=== PATIENT | female | born 1960 | race Caucasian/White ===

== ENCOUNTER 2020-12-18 14:48 | Inpatient (IN) | payer BC ==
[~2020-12-18] VITALS: Ht 170.2 cm; Wt 90.0 kg
[~2020-12-18 14:48] MED LIST: IBUP-1984 PO
[2020-12-18] MEDS ORDERED: levoFLOXACIN-Levaquin 750MG/D5 150 ML IV ONE (15:30)
[2020-12-18] MEDS ORDERED: normal saline 1000ML IV soln IV ONE (15:30)
[2020-12-18 15:36] LABS: BASOPHILS % (AUTO) 0.1 % (0-1); EOSINOPHILS % (AUTO) 0 % (0-6); HEMATOCRIT 43.7 % (35.0-45.0); LYMPHOCYTES # (AUTO) 0.4 X10'3 (1.1-4.8); LYMPHOCYTES % (AUTO) 3.9 % (21-51); MEAN CORPUSCULAR HEMOGLOBIN 32.2 PG (27.0-31.0); MEAN CORPUSCULAR HGB CONC 34.3 g/dL (33.0-36.5); MEAN CORPUSCULAR VOLUME 93.7 FL (78-98); MEAN PLATELET VOLUME 8.6 FL (7.4-10.4); MONOCYTES % (AUTO) 8.7 % (2-12); NEUTROPHILS # (AUTO) 10.1 X10'3 (1.8-7.7); NEUTROPHILS % (AUTO) 87.3 % (42-75); PLATELET COUNT 206 X10'3 (140-440); RED BLOOD COUNT 4.67 X10'6 (4.20-5.60); RED CELL DISTRIBUTION WIDTH 12.6 % (11.5-14.5); WHITE BLOOD COUNT 11.6 X10'3 (4.5-11.0)
[2020-12-18] MEDS ORDERED: ondansetron/PF 4mg/2ml inj IV ONE ×2 (15:40→18:45)
[2020-12-18 15:52] LABS: ALANINE AMINOTRANSFERASE 19 U/L (12-78); ALBUMIN 2.9 G/DL (3.4-5.0); ALBUMIN/GLOBULIN RATIO 0.6 (1.1-1.5); ALKALINE PHOSPHATASE 110 IU/L (46-116); ANION GAP 18 (8-16); ASPARTATE AMINO TRANSFERASE 22 U/L (10-37); BILIRUBIN,TOTAL 0.6 MG/DL (0.1-1.0); BLOOD UREA NITROGEN 39 MG/DL (7-18); BUN/CREATININE RATIO 19.1 (6.6-38.0); CALCIUM 8.7 MG/DL (8.5-10.1); CHLORIDE 95 MMOL/L (99-107); CREATININE 2.04 MG/DL (0.40-0.90); GLUCOSE 128 MG/DL (70-104); POTASSIUM 3.2 MMOL/L (3.5-5.1); SODIUM 132 MMOL/L (135-145); TOTAL PROTEIN 7.7 G/DL (6.4-8.2); eGFR 25 ML/MIN
[2020-12-18] MEDS: morphine 4 MG/ML inj SYRINge IV PRN ×2 (16:01→19:01)
[2020-12-18] MEDS ORDERED: potassium Cl 10 mEq/100mL bag IV ONE (17:00)
[2020-12-18] MEDS: potassium CL 10mEq/100ml bag 100 ML IV SCH ×6 (17:05→22:05)
[2020-12-18 17:15] LABS: CLARITY,URINE CLOUDY (Clear); COLOR,URINE YELLOW (Yellow); GLUCOSE, URINE NEGATIVE (Neg); KETONES,URINE TRACE mg/dl (Neg); LEUKOCYTE ESTERASE ,URINE SMALL (Neg); NITRITES, URINE NEGATIVE (Neg); OCCULT BLOOD,URINE SMALL (Neg); PH,URINE 5.5 (4.8-8.0); PROTEIN,URINE 100 mg/dl (Neg); UROBILINOGEN,URINE 0.2 E.U/dL (0.2-1.0)
[2020-12-18 17:43] LABS: UA COLLECTION TYPE CLN CATCH MIDSTREAM
[2020-12-18 17:46] LABS: BACTERIA,URINE 4+ /HPF (Neg); CELLULAR CAST 0-4 /LPF (NEGATIVE); MUCUS STRANDS FEW /LPF (Neg); RBC,URINE 0-2 /HPF (0-2); SQUAMOUS EPITHELIAL CELL,UR MODERATE /LPF (FEW); WBC,URINE 50-100 /HPF (0-4)
[2020-12-18 18:43] LABS: TOTAL CELLS COUNTED 100
[2020-12-18 18:45] LABS: PLATELET ESTIMATE NORMAL; TOXIC GRANULATION 2+; TOXIC VACUOLATION 1+
[2020-12-18] MEDS ORDERED: morphine 4 MG/ML inj SYRINge IV PRN (18:45)
[2020-12-18] MEDS ORDERED: ondansetron/PF 4mg/2ml inj IV PRN (19:50)
[2020-12-18] MEDS ORDERED: potassium Cl 40MEQ/1/2NS 520ml 520 ML IV PRN ×2 (19:50)
[2020-12-18] MEDS ORDERED: morphine 2 MG/ML inj. syringe IV PRN (19:50)
[2020-12-18] MEDS ORDERED: potassium Cl 20 mEq SR tablet PO PRN (19:50)
[2020-12-18] MEDS: potassium Cl 20mEq in NS 1,000 ML IV SCH (20:26)
[2020-12-18] MEDS: K and/or MAG REPLACEMENT MC SCH (20:28)
[2020-12-18] MEDS: heparin, porcine 5000 units/ml vial SQ SCH (20:29)
[2020-12-18] MEDS ORDERED: PROG200C11 PO (21:13)
[2020-12-18] MEDS ORDERED: EST1T PO ×2 (21:13)
[2020-12-18] MEDS ORDERED: estradiol patch TD (21:13)
[2020-12-18] MEDS ORDERED: HYDR12.55 PO (21:13)
--- NOTE | 2020-12-18 22:32 | NUR ---
Received report from Satya CLEMENS RN.
[2020-12-19] VITALS: BP 129/67
[2020-12-19] MEDS: piperacillin/tazo 3.375gm/50ml 50 ML IV SCH ×3 (01:02→17:27)
[2020-12-19] MEDS: morphine 2 MG/ML inj. syringe IV PRN ×4 (03:12→21:52)
[2020-12-19] MEDS: potassium Cl 20mEq in NS 1,000 ML IV SCH ×2 (06:04→17:28)
--- NOTE | 2020-12-19 06:47 | NUR ---
Problems reprioritized. Patient report given, questions answered & plan of care reviewed with ALEXI Mckoen.
--- NOTE | 2020-12-19 06:47 | NUR ---
Problems reprioritized. Patient report given, questions answered & plan of care reviewed with ALEXI Mckeon.
--- NOTE | 2020-12-19 06:48 | NUR ---
Patient in room [facility]. I have received report from Anabell TRUONG and rachana RN and had the opportunity to ask questions and assume patient care.
[2020-12-19 07:00] VITALS: BP 127/69
[2020-12-19 07:08] LABS: EOSINOPHILS % (AUTO) 0 % (0-6); LYMPHOCYTES # (AUTO) 0.6 X10'3 (1.1-4.8); MEAN CORPUSCULAR HGB CONC 34.9 g/dL (33.0-36.5); MONOCYTES # (AUTO) 1.5 X10'3 (0-0.9); WHITE BLOOD COUNT 10.2 X10'3 (4.5-11.0)
[2020-12-19 07:11] LABS: BASOPHILS % (AUTO) 0.2 % (0-1); HEMATOCRIT 35.9 % (35.0-45.0); HEMOGLOBIN 12.5 g/dl (12.0-16.0); MEAN CORPUSCULAR HEMOGLOBIN 32.8 PG (27.0-31.0); MEAN CORPUSCULAR VOLUME 94.1 FL (78-98); MEAN PLATELET VOLUME 8.1 FL (7.4-10.4); MONOCYTES % (AUTO) 14.7 % (2-12); NEUTROPHILS % (AUTO) 79.1 % (42-75); PLATELET COUNT 189 X10'3 (140-440); RED BLOOD COUNT 3.81 X10'6 (4.20-5.60); RED CELL DISTRIBUTION WIDTH 12.5 % (11.5-14.5)
[2020-12-19 07:42] LABS: ALANINE AMINOTRANSFERASE 18 U/L (12-78); ALBUMIN 2.1 G/DL (3.4-5.0); ALBUMIN/GLOBULIN RATIO 0.5 (1.1-1.5); ALKALINE PHOSPHATASE 85 IU/L (46-116); ANION GAP 14 (8-16); ASPARTATE AMINO TRANSFERASE 22 U/L (10-37); BILIRUBIN,TOTAL 0.4 MG/DL (0.1-1.0); BLOOD UREA NITROGEN 26 MG/DL (7-18); BUN/CREATININE RATIO 21.7 (6.6-38.0); CALCIUM 7.5 MG/DL (8.5-10.1); CHLORIDE 101 MMOL/L (99-107); GLUCOSE 105 MG/DL (70-104); POTASSIUM 3.2 MMOL/L (3.5-5.1); SODIUM 133 MMOL/L (135-145); TOTAL CARBON DIOXIDE 18.2 MMOL/L (24-32); eGFR 46 ML/MIN
[2020-12-19 07:54] LABS: TOTAL CELLS COUNTED 100
[2020-12-19 07:55] LABS: PLATELET ESTIMATE NORMAL
[2020-12-19] MEDS: K and/or MAG REPLACEMENT MC SCH ×2 (08:00→19:59)
[2020-12-19] MEDS: heparin, porcine 5000 units/ml vial SQ SCH ×2 (08:57→19:51)
[2020-12-19] MEDS: estradiol 1mg tablet PO SCH (08:59)
[2020-12-19] MEDS: HYDROchlorothiazide 12.5mg capsule PO SCH (08:59)
[2020-12-19] MEDS ORDERED: ESTRADIOL 0.075 MG/24 HR TP SCH ×2 (09:00→13:55)
[2020-12-19] MEDS: potassium Cl 20 mEq SR tablet PO PRN ×3 (10:49→19:51)
[2020-12-19 11:00] VITALS: BP 118/65
[2020-12-19] MEDS ORDERED: ESTR1PAT94 TOP (13:54)
[2020-12-19 18:00] VITALS: BP 144/54
--- NOTE | 2020-12-19 18:45 | NUR ---
Patient in room [facility]. I have received report from IZABEL TRUONG and had the opportunity to ask questions and assume patient care.
--- NOTE | 2020-12-19 18:52 | NUR ---
Problems reprioritized. Patient report given, questions answered & plan of care reviewed with Prudence RN.
[2020-12-19] MEDS ORDERED: acetaminophen 325mg tablet PO PRN ×2 (19:45→20:00)
[2020-12-19] MEDS: lactobacillus rhamnosus 10,000 MMU CELLS/CAPSULE PO SCH (19:51)
[2020-12-19] MEDS: progesterone, micronized 100mg capsule PO SCH (21:54)
[2020-12-20] VITALS: BP 115/58
[2020-12-20] MEDS: piperacillin/tazo 3.375gm/50ml 50 ML IV SCH ×4 (00:49→23:45)
[2020-12-20] MEDS: potassium Cl 20mEq in NS 1,000 ML IV SCH ×3 (00:49→20:51)
[2020-12-20] MEDS: morphine 2 MG/ML inj. syringe IV PRN ×6 (03:02→23:46)
[2020-12-20 05:56] LABS: BASOPHILS % (AUTO) 0.1 % (0-1); EOSINOPHILS % (AUTO) 0.1 % (0-6); HEMATOCRIT 37.2 % (35.0-45.0); HEMOGLOBIN 12.5 g/dl (12.0-16.0); LYMPHOCYTES # (AUTO) 0.8 X10'3 (1.1-4.8); LYMPHOCYTES % (AUTO) 6.5 % (21-51); MEAN CORPUSCULAR HEMOGLOBIN 31.8 PG (27.0-31.0); MEAN CORPUSCULAR HGB CONC 33.7 g/dL (33.0-36.5); MEAN CORPUSCULAR VOLUME 94.3 FL (78-98); MONOCYTES # (AUTO) 1.2 X10'3 (0-0.9); MONOCYTES % (AUTO) 9.8 % (2-12); NEUTROPHILS % (AUTO) 83.5 % (42-75); PLATELET COUNT 227 X10'3 (140-440); RED BLOOD COUNT 3.95 X10'6 (4.20-5.60)
--- NOTE | 2020-12-20 06:27 | NUR ---
Problems reprioritized. Patient report given, questions answered & plan of care reviewed with TOMER TRUONG.
[2020-12-20 06:29] LABS: ALANINE AMINOTRANSFERASE 17 U/L (12-78); ALBUMIN/GLOBULIN RATIO 0.5 (1.1-1.5); ALKALINE PHOSPHATASE 98 IU/L (46-116); ANION GAP 11 (8-16); ASPARTATE AMINO TRANSFERASE 22 U/L (10-37); BILIRUBIN,TOTAL 0.5 MG/DL (0.1-1.0); BLOOD UREA NITROGEN 12 MG/DL (7-18); BUN/CREATININE RATIO 12.1 (6.6-38.0); CALCIUM 8.1 MG/DL (8.5-10.1); CHLORIDE 102 MMOL/L (99-107); CREATININE 0.99 MG/DL (0.40-0.90); GLUCOSE 108 MG/DL (70-104); POTASSIUM 3.9 MMOL/L (3.5-5.1); SODIUM 132 MMOL/L (135-145); TOTAL CARBON DIOXIDE 18.9 MMOL/L (24-32); TOTAL PROTEIN 6.1 G/DL (6.4-8.2); eGFR 57 ML/MIN
--- NOTE | 2020-12-20 07:02 | NUR ---
Patient in room [facility]. I have received report from Shyanne TRUONG and had the opportunity to ask questions and assume patient care.
[2020-12-20] MEDS: lactobacillus rhamnosus 10,000 MMU CELLS/CAPSULE PO SCH ×2 (07:52→19:27)
[2020-12-20] MEDS: HYDROchlorothiazide 12.5mg capsule PO SCH (07:52)
[2020-12-20] MEDS: heparin, porcine 5000 units/ml vial SQ SCH ×2 (07:53→19:27)
[2020-12-20] MEDS: estradiol 1mg tablet PO SCH (07:54)
[2020-12-20 08:00] VITALS: BP 161/72
[2020-12-20] MEDS: K and/or MAG REPLACEMENT MC SCH ×2 (08:00→20:00)
[2020-12-20 11:00] VITALS: BP 121/56
[2020-12-20] MEDS ORDERED: hydrALAZINE 20mg/ml inj. IV PRN (14:30)
[2020-12-20 18:00] VITALS: BP 140/65
--- NOTE | 2020-12-20 18:13 | NUR ---
Problems reprioritized. Patient report given, questions answered & plan of care reviewed with Prudence RN.
--- NOTE | 2020-12-20 18:48 | NUR ---
Patient in room [facility]. I have received report from TOMER TRUONG and had the opportunity to ask questions and assume patient care.
[2020-12-20] MEDS: progesterone, micronized 100mg capsule PO SCH (20:47)
[2020-12-21 00:39] VITALS: BP 155/81
[2020-12-21] MEDS: morphine 2 MG/ML inj. syringe IV PRN ×2 (04:07→07:53)
[2020-12-21] MEDS: potassium Cl 20mEq in NS 1,000 ML IV SCH ×2 (04:09→17:16)
[2020-12-21 06:13] LABS: BASOPHILS % (AUTO) 0.3 % (0-1); EOSINOPHILS % (AUTO) 0.1 % (0-6); HEMATOCRIT 35.5 % (35.0-45.0); HEMOGLOBIN 12.3 g/dl (12.0-16.0); LYMPHOCYTES # (AUTO) 0.9 X10'3 (1.1-4.8); LYMPHOCYTES % (AUTO) 10.7 % (21-51); MEAN CORPUSCULAR HEMOGLOBIN 32.6 PG (27.0-31.0); MEAN CORPUSCULAR HGB CONC 34.7 g/dL (33.0-36.5); MEAN CORPUSCULAR VOLUME 93.9 FL (78-98); MEAN PLATELET VOLUME 7.1 FL (7.4-10.4); MONOCYTES # (AUTO) 1.1 X10'3 (0-0.9); MONOCYTES % (AUTO) 12.9 % (2-12); NEUTROPHILS # (AUTO) 6.5 X10'3 (1.8-7.7); PLATELET COUNT 225 X10'3 (140-440); RED BLOOD COUNT 3.78 X10'6 (4.20-5.60); RED CELL DISTRIBUTION WIDTH 12.9 % (11.5-14.5); WHITE BLOOD COUNT 8.5 X10'3 (4.5-11.0)
--- NOTE | 2020-12-21 06:26 | NUR ---
Problems reprioritized. Patient report given, questions answered & plan of care reviewed with ALEXANDRIA RN.
--- NOTE | 2020-12-21 06:36 | NUR ---
Patient in room [facility]. I have received report from Shyanne TRUONG and had the opportunity to ask questions and assume patient care.
[2020-12-21 06:44] LABS: ALANINE AMINOTRANSFERASE 31 U/L (12-78); ALBUMIN/GLOBULIN RATIO 0.5 (1.1-1.5); ALKALINE PHOSPHATASE 121 IU/L (46-116); ANION GAP 10 (8-16); ASPARTATE AMINO TRANSFERASE 50 U/L (10-37); BILIRUBIN,TOTAL 0.6 MG/DL (0.1-1.0); BLOOD UREA NITROGEN 8 MG/DL (7-18); BUN/CREATININE RATIO 10.4 (6.6-38.0); CALCIUM 7.8 MG/DL (8.5-10.1); CHLORIDE 101 MMOL/L (99-107); CREATININE 0.77 MG/DL (0.40-0.90); GLUCOSE 121 MG/DL (70-104); SODIUM 134 MMOL/L (135-145); TOTAL CARBON DIOXIDE 22.7 MMOL/L (24-32); TOTAL PROTEIN 5.9 G/DL (6.4-8.2); eGFR 76 ML/MIN
[2020-12-21] MEDS: heparin, porcine 5000 units/ml vial SQ SCH ×2 (07:54→22:32)
[2020-12-21] MEDS: piperacillin/tazo 3.375gm/50ml 50 ML IV SCH ×2 (07:54→17:13)
[2020-12-21] MEDS: lactobacillus rhamnosus 10,000 MMU CELLS/CAPSULE PO SCH ×2 (07:54→22:33)
[2020-12-21] MEDS: HYDROchlorothiazide 12.5mg capsule PO SCH (07:54)
[2020-12-21] MEDS: estradiol 1mg tablet PO SCH (07:55)
[2020-12-21] MEDS: K and/or MAG REPLACEMENT MC SCH ×2 (08:00→20:00)
[2020-12-21 09:26] VITALS: BP 119/79
[2020-12-21 11:00] VITALS: BP 146/69
[2020-12-21] MEDS ORDERED: oxyCODONE/APAP 10/325mg tablet PO PRN (11:05)
--- NOTE | 2020-12-21 18:26 | NUR ---
Problems reprioritized. Patient report given, questions answered & plan of care reviewed with Serena TRUONG.
[2020-12-21] MEDS: oxyCODONE/APAP 5-325mg tablet PO PRN ×2 (18:48→22:40)
--- NOTE | 2020-12-21 18:57 | NUR ---
Patient in room [facility]. I have received report from ALEXI Franklin and had the opportunity to ask questions and assume patient care.
[2020-12-21 19:00] VITALS: BP 134/78
[2020-12-21] MEDS: progesterone, micronized 100mg capsule PO SCH (22:33)
[2020-12-22] MEDS: piperacillin/tazo 3.375gm/50ml 50 ML IV SCH ×2 (00:10→07:17)
[2020-12-22 00:37] VITALS: BP 159/70
[2020-12-22] MEDS: oxyCODONE/APAP 5-325mg tablet PO PRN ×3 (02:21→11:41)
[2020-12-22] MEDS: potassium Cl 20mEq in NS 1,000 ML IV SCH (03:50)
[2020-12-22 06:26] LABS: BASOPHILS % (AUTO) 0.4 % (0-1); EOSINOPHILS % (AUTO) 0.4 % (0-6); HEMOGLOBIN 12.4 g/dl (12.0-16.0); LYMPHOCYTES # (AUTO) 1.2 X10'3 (1.1-4.8); LYMPHOCYTES % (AUTO) 16.8 % (21-51); MEAN CORPUSCULAR HEMOGLOBIN 33.2 PG (27.0-31.0); MEAN CORPUSCULAR HGB CONC 35.4 g/dL (33.0-36.5); MEAN CORPUSCULAR VOLUME 93.9 FL (78-98); MEAN PLATELET VOLUME 7.4 FL (7.4-10.4); MONOCYTES # (AUTO) 0.9 X10'3 (0-0.9); MONOCYTES % (AUTO) 12.5 % (2-12); NEUTROPHILS # (AUTO) 4.8 X10'3 (1.8-7.7); NEUTROPHILS % (AUTO) 69.9 % (42-75); PLATELET COUNT 236 X10'3 (140-440); RED BLOOD COUNT 3.73 X10'6 (4.20-5.60); RED CELL DISTRIBUTION WIDTH 12.6 % (11.5-14.5); WHITE BLOOD COUNT 6.9 X10'3 (4.5-11.0)
--- NOTE | 2020-12-22 06:26 | NUR ---
Problems reprioritized. Patient report given, questions answered & plan of care reviewed with ALEXI Franklin.
[2020-12-22 06:42] LABS: ALANINE AMINOTRANSFERASE 36 U/L (12-78); ALBUMIN/GLOBULIN RATIO 0.5 (1.1-1.5); ALKALINE PHOSPHATASE 121 IU/L (46-116); ANION GAP 8 (8-16); ASPARTATE AMINO TRANSFERASE 39 U/L (10-37); BILIRUBIN,TOTAL 0.7 MG/DL (0.1-1.0); BLOOD UREA NITROGEN 6 MG/DL (7-18); BUN/CREATININE RATIO 9.2 (6.6-38.0); CHLORIDE 101 MMOL/L (99-107); CREATININE 0.65 MG/DL (0.40-0.90); GLUCOSE 103 MG/DL (70-104); POTASSIUM 3.7 MMOL/L (3.5-5.1); SODIUM 135 MMOL/L (135-145); TOTAL CARBON DIOXIDE 26.1 MMOL/L (24-32); TOTAL PROTEIN 5.9 G/DL (6.4-8.2); eGFR > 90 ML/MIN
--- NOTE | 2020-12-22 06:52 | NUR ---
Patient in room [facility]. I have received report from Serena TRUONG and had the opportunity to ask questions and assume patient care.
[2020-12-22] MEDS: estradiol 1mg tablet PO SCH (07:17)
[2020-12-22] MEDS: HYDROchlorothiazide 12.5mg capsule PO SCH (07:17)
[2020-12-22] MEDS: lactobacillus rhamnosus 10,000 MMU CELLS/CAPSULE PO SCH (07:17)
[2020-12-22] MEDS: heparin, porcine 5000 units/ml vial SQ SCH (07:20)
[2020-12-22 08:00] VITALS: BP 159/78
[2020-12-22] MEDS: K and/or MAG REPLACEMENT MC SCH (08:00)
[2020-12-22] MEDS ORDERED: PER5325T PO (10:40)
[2020-12-22] MEDS ORDERED: AMOX-117 PO (10:40)
[2020-12-22 11:00] VITALS: BP 147/72
--- NOTE | 2020-12-22 14:45 | NUR ---
PATIENT DISCHARGED TO THE HOME, PATIENT FAMILY IN THE ROOM DURING DISCHARGE. PATIENT WAS EDUCATED ON FOLLOWING UP WITH PCP AND DR. PICKETT, PATIENT WAS EDUCATED ON NEW MEDICATIONS AT THIS TIME WELL. PATIENT EXPRESSED VERBAL UNDERSTANDING OF DISCHARGE TEACHING AT THIS TIME. PATIENT WAS TAKEN TO LOBBY IN WHEELCHAIR AFTER THE iv WAS TAKEN OUT, CANNULA WAS WHOLE AND INTACT UPON INSPECTION. pATIENT LEFT WITH ALL BELONGINGS AND WAS TAKEN HOME IN PRIVATE VEHICLE.
== END 2020-12-22 14:35 | disposition home or self-care (01) | DRG 393 ==
LOC: ER 14:49 → ED HOLD 19:48 → SUR 3N 22:43
PROVIDERS: ADMIT Internal Medicine; ATTEND Family Medicine
DX: K63.89 Other specified diseases of intestine (principal); N17.0 Acute kidney failure with tubular necrosis; E87.1 Hypo-osmolality and hyponatremia; N12 Tubulo-interstitial nephritis, not specified as acute or chronic; E87.2 Acidosis; B96.20 Unspecified Escherichia coli [E. coli] as the cause of diseases classified elsewhere; E86.0 Dehydration; E87.6 Hypokalemia; I10 Essential (primary) hypertension; Z79.899 Other long term (current) drug therapy; Z87.891 Personal history of nicotine dependence; Z98.84 Bariatric surgery status; Z88.8 Allergy status to other drugs, medicaments and biological substances
CPT/HCPCS: 36415; 71045; 74176; 80053; 81001; 83605; 84145; 85007; 85025; 87040; 87077; 87081; 87088; 87186; 96365; 96366; 96368; 96375; 99285; G0378; J1644; J1956; J2270; J2405; J2543; J3480; J7030